=== PATIENT | female | born 1960 | race Caucasian/White ===

== ENCOUNTER → 2021-01-18 15:12 | Outpatient (CLI) | payer OTHER, SELFPAY ==
--- NOTE | 2021-01-18 15:17 | US_ITS ---
STUDY: ULTRASOUND BREAST - RIGHT REASON FOR EXAM: Female, 60 years old. Palpable lump in the right breast. TECHNIQUE: Axial and longitudinal images of the RIGHT breast were performed with a high resolution ultrasound transducer. # OF IMAGES: 13 COMPARISON: None. FINDINGS: RIGHT Breast: There is a 4 mm x 4 mm x 5 mm hypoechoic slightly irregular solid mass at the 10 o''clock position of the breast at 4 cm from the nipple. Biopsy recommended. US/Breast Limited Unilateral IMPRESSION: 4 mm x 4 mm x 5 mm hypoechoic slightly irregular solid mass at the 10 o''clock position of the breast at 4 cm from the nipple. Biopsy recommended. ASSESSMENT CATEGORY: BIRADS Category 4: Suspicious - Biopsy Should Be Considered. A letter regarding these results will be sent to the patient by the facility within 30 days. Electronically Signed: Miles Antoine MD at 9:36 EDT , Service support ,
--- NOTE | 2021-01-21 13:38 | BI_ITS ---
MAMMOGRAPHY - UNILATERAL DIAGNOSTIC: RIGHT BREAST REASON FOR EXAM: Female, 60 years old. Status post ultrasound-guided breast biopsy. PERTINENT HISTORY: Hypoechoic nodule at the 10 o''clock position of the breast or 6 cm from nipple. TECHNIQUE: Mediolateral oblique and craniocaudad views of the right breast were obtained. CAD: Full Field Digital Mammography with Computer Added Detection was performed. COMPARISON: Comparison is made with prior mammogram dated 09/01/2020. FINDINGS: A tissue clip marker is seen in the upper lateral aspect of the right breast. BI/DIAG MAMM W/CAD, UNILAT IMPRESSION: A tissue clip marker is seen in the upper outer aspect of the right breast at the site of the ultrasound-guided biopsy. ASSESSMENT CATEGORY: BIRADS Category 2: Benign. A letter regarding these results will be sent to the patient by the facility within 30 days. Approximately 10% of breast cancers are not detected by mammography. A normal mammogram should not delay biopsy of a clinically suspicious abnormality. Electronically Signed: Miles Antoine MD at 14:14 EDT , Service support ,
== END ==
PROVIDERS: Referring Provider Surgery; Visit Provider Surgery
DX: N63.11 Unspecified lump in the right breast, upper outer quadrant (principal)
CPT/HCPCS: 76642

== ENCOUNTER → 2021-01-21 12:41 | Outpatient (CLI) | payer OTHER, SELFPAY ==
--- NOTE | 2021-01-21 | IMM_PTH ---
PATIENT: SUSHILA FRANCO LOC: [facility] U#:[id number] AGE/SX: 64/F ROOM: RE01/21/[address]: Dr. Nitesh Jules MD : 1960 BED: DIS: SPEC #: [id number] RECD: 01/25/21 12:16 STATUS: MELANY RECasey #: [id number] CORNELIUS: 01/21/21 00:[address]: Nitesh Jules DEPT: IMMUNOHISTOCHEMISTRY RECD BY: Fozia Santizo ENTERED: 01/25/21 12:18 SP TYPE: IMMUNO OTHR DR: No Primary Care Phys Tissues: Right breast, NOS Procedures: CK5-6 (initial) SMA (add) CALPONIN-1 (add) P40 (add) PHYSICIAN & INSTITUTION [place] [id number] SPECIMEN INFORMATION: Tissue Source: Right breast biopsy Clinical Info: Breast lesion Specimen Number: [id number] CPT code: 33463, 78914 x3 METHODOLOGY: Deparaffinized sections of prefer/formalin-fixed tissue or PAP/DQ stained slides are incubated with monoclonal/polyclonal antibodies/oligonucleotide probes. Localization is made via biotin free immunoperoxidase method. Appropriate controls are performed and reacted as expected. Results on target cell population are indicated in the following table: RESULTS: ANTIBODY / CLONE RESULT Actin (1A4) positive CK5-6 (D5 & 1684) positive Calponin-1 (CN650L) positive P40 (BC28) positive These tests were developed and their performance characteristics determined by [facility]. They may not have been cleared or approved by the U.S. Food and Drug Administration. The FDA has determined that such clearance or approval is not necessary. The above immunohistochemical/dualISH markers are ordered and reviewed by the Pathologist. INTERPRETATION: Right breast, biopsy: Consistent with fragments of intraductal papilloma. AM:hyacinth 01/26/2021
--- NOTE | 2021-01-21 | BRBX_PTH ---
PATIENT: SUSHILA FRANCO LOC: [facility] U#:[id number] AGE/SX: 64/F ROOM: RE01/21/[address]: Dr. Nitesh Jules MD : 1960 BED: DIS: SPEC #: [id number] RECD: 01/21/21 14:17 STATUS: MELANY MANPREET #: [id number] CORNELIUS: 01/21/21 00:[address]: Nitesh Jules DEPT: SURGICAL PATHOLOGY RECD BY: Angeline Loaiza ENTERED: 01/24/21 09:02 SP TYPE: BREAST BX OTHR DR: No Primary Care Phys Tissues: Right breast, NOS Procedures: Surgery Specimen Level IV HEADER OPERATION: Right breast biopsy PRE-OP DIAGNOSIS: Right breast lesion TISSUE SUBMITTED: Right breast biopsy ISCHEMIC TIME: 1 minute FIXATION TIME: 77 hours MICROSCOPIC DIAGNOSIS Right breast, core biopsy: Consistent with fragments of intraductal papilloma. See comment. AM:hyacinth 01/26/2021 COMMENT Immunohistochemistry ([id number]) supports the above diagnosis. Case has been reviewed in consultation with Dr. Lyles who concurs with the above diagnosis. IDC:SJ MICROSCOPIC DESCRIPTION Slides are reviewed. GROSS DESCRIPTION Received in fixative is one container labeled with the patient's name and designated right breast. The specimen consists of multiple irregular and elongated fragments of light willis-yellow soft tissue that in aggregate measure 1.5 x 1 x 0.1 cm. The specimen is totally submitted in one cassette. / AM:hyacinth 01/24/21 TC:5 CPT: 44760
--- NOTE | 2021-01-21 12:42 | US_ITS ---
STUDY: ULTRASOUND BREAST - RIGHT REASON FOR EXAM: Female, 60 years old. Right breast biopsy. TECHNIQUE: Axial and longitudinal images of the RIGHT breast were performed with a high resolution ultrasound transducer. # OF IMAGES: 18 COMPARISON: None. FINDINGS: RIGHT Breast: Ultrasound guided breast biopsy was performed by the surgeon of the hypoechoic nodule at the 9 o''clock position of the breast at 5 cm from nipple. US/US Breast Biopsy 1st Lesion IMPRESSION: Ultrasound guided right breast biopsy. ASSESSMENT CATEGORY: BIRADS Category 4: Suspicious - Biopsy Should Be Considered. A letter regarding these results will be sent to the patient by the facility within 30 days. Electronically Signed: Miles Antoine MD at 10:20 EDT , Service support ,
--- NOTE | 2021-01-21 13:36 | PCM.OPRPT ---
Problems Associated Problem List Diagnoses (1) Abnormal ultrasound of breast: Report of Operation Date of Procedure: 01/21/21 Pre-Operative Diagnosis: Irregular density upper outer quadrant right breast 10 o'clock position +5 cm Post-Operative Diagnosis: Irregular density outer mid right breast 9 o'clock position +5 cm Surgery/Procedure Performed:: Ultrasound-guided Monopty needle core biopsy outer mid right breast 9 o'clock position Description of Surgical Findings:: Timeout informed consent was obtained. Patient was taken to the ultrasound suite. She was placed in a modified left lateral decubitus position. Ultrasonography was performed per technology in the upper outer right breast. The preoperative imaging that had been obtained from [facility] could not be confirmed in that location. A more global view was obtained and at the right breast 9 o'clock position +5 cm the density that seem to correlate with preoperative imaging was identified. The breast was prepped with chlorhexidine. Under ultrasound guidance 1% lidocaine was used as a local anesthetic. A small stab incision was created. A 14-gauge Monopty needle was advanced to prefire depth. Pre and post fire films were obtained. 6 cores were obtained. A bowtie clip was left in position. Pressure was held for hemostasis. Steri-Strip Telfa OpSite dressing applied. She tolerated the procedure very well. The specimens were immediately transferred to formalin. Final pathology is pending. Blood loss minimal. Nitesh Jules M.D., F.A.C.S. Surgeon: Nitesh Jules Type of Anesthesia: Local
== END ==
PROVIDERS: Referring Provider Surgery; Visit Provider Surgery
DX: R92.8 Other abnormal and inconclusive findings on diagnostic imaging of breast (principal)
CPT/HCPCS: 19083; 77065; 88305; 88341; 88342

== ENCOUNTER → 2021-01-21 16:23 | Outpatient (CLI) | payer OTHER, SELFPAY | PROVIDERS: Visit Provider Surgery | DX: R69 Illness, unspecified (principal) | CPT/HCPCS: 77065 ==

== ENCOUNTER 2021-04-07 09:50 | Day surgery (SDC) | payer OTHER, SELFPAY ==
[2021-04-07] VITALS (7 sets, daily range): BP systolic 97–116; BP diastolic 64–85; PULSE 58–77; RESP 16–18; TEMP 35.9–36.9; O2SAT 98–100; BMI 23.1
--- NOTE | 2021-04-07 | IMM_PTH ---
PATIENT: SUSHILA FRANCO LOC[place] [facility] [place] U[place][id number] AGE/SX: 60/F ROOM: RE04/07/[address]: Dr. Nitesh Jules MD : 1960 BED: DIS: 04/07/2021 SPEC #: [id number] RECD: 04/12/21 14:48 STATUS: MELANY REQ #: [id number] CORNELIUS: 04/07/21 00:[address]: Nitesh Jules DEPT: IMMUNOHISTOCHEMISTRY RECD BY: Fozia Santizo ENTERED: 04/12/21 14:49 SP TYPE: IMMUNO OTHR DR: No Primary Care Phys Tissues: Right breast, NOS Procedures: SMA (add) Calponin-1(initial) CALPONIN-1 (add) CK5-6 (add) PHYSICIAN & INSTITUTION [place] [id number] SPECIMEN INFORMATION: Tissue Source: Right breast Clinical Info: Right breast mass Specimen Number: [id number] #2, 6 & 10 CPT code: 38618, 91189 x8 METHODOLOGY: Deparaffinized sections of prefer/formalin-fixed tissue or PAP/DQ stained slides are incubated with monoclonal/polyclonal antibodies/oligonucleotide probes. Localization is made via biotin free immunoperoxidase method. Appropriate controls are performed and reacted as expected. Results on target cell population are indicated in the following table: RESULTS: ANTIBODY / CLONE RESULT Block 2 Calponin-1 (WA485P) positive Actin (1A4) positive CK5-6 (D5 & 1684) positive Block 6 Calponin-1 (JA196D) positive Actin (1A4) positive CK5-6 (D5 & 1684) positive Block 10 Calponin-1 (WR218C) positive Actin (1A4) positive CK5-6 (D5 & 1684) positive These tests were developed and their performance characteristics determined by [facility]. They may not have been cleared or approved by the U.S. Food and Drug Administration. The FDA has determined that such clearance or approval is not necessary. The above immunohistochemical/dualISH markers are ordered and reviewed by the Pathologist. INTERPRETATION: Right breast, biopsy: Intraductal papilloma and adenosis. AM:hyacinth 04/13/2021
--- NOTE | 2021-04-07 09:57 | BI_ITS ---
SURGICAL BREAST SPECIMEN RADIOGRAPH CLINICAL: Document presence of tissue clip marker in biopsy specimen. FINDINGS: Specimen shows presence of tissue clip marker. Electronically Signed: Miles Antoine MD at 12:13 EST , Service support , BI/Breast Biopsy Specimen
[2021-04-07] MEDS: Lactated Ringers 1,000 ML 15 ML IV (10:05)
--- NOTE | 2021-04-07 10:24 | HP.PCM_ITS ---
History and Physical Date of Admission: 04/07/21 [facility] [address] [place], [place] [phone] OFFICE VISIT Date of Service: 04/07/21 MR#:[id number] Acct:[id number] Name: SUSHILA FRANCO Rep #:[id number] :1960 Provider:Dr. Nitesh Jules MD Age/Sex: 60/F Location:[facility] Status:Signed Intake Vital Signs 04/07/21 13:49 Height 5 ft 7 in Weight: 148 lb BMI 23.2 BP 99/64 Blood Pressure Location Rt brachial Position Sitting Respiration 18 Intake Visit Reasons: RIGHT BREAST/ BRINGING RESULTS Allergies No Known Allergies Allergy (Unverified 01/18/21 13:46) Medications cholecalciferol (vitamin D3) 125 mcg (5,000 unit) capsule 125 mcg PO DAILY 01/18/21 [History Confirmed 01/18/21] lysine 500 mg tablet 500 mg PO DAILY 01/18/21 [History Confirmed 01/18/21] multivitamin 1 tab PO DAILY 01/18/21 [History Confirmed 01/18/21] PFSH Medical History (Updated 01/18/21 @ 17:[address] Nitesh Jules MD) Breast mass, right PFO (patent foramen ovale) Stroke Surgical History (Updated 01/18/21 @ 13:48 by Lorri Burton) S/P D&C (status post dilation and curettage) Status post right heart catheterization Family History (Updated 01/18/21 @ 13:48 by Lorri Burton) Brother Asthma Social History (Updated 01/18/21 @ 13:48 by Lorri Burton) Smoking Status: Former smoker alcohol intake: never HPI: Patient is a 60 y/o F I am following for an update history and physical. She presents for an elective outpatient excisional breast biopsy. Patient denies recent hospitalizations or illnesses since her last office visit in December. 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 She denies chest pain, shortness of breath. She denies any previous complications with anesthesia or side effects. SUSHILA FRANCO, is a 60 F who presents to the office today for surgical consultation regarding breast disease. 60-year-old female. G4, . Menarche age 13. First child born when she was 30. She did breast-feed. I performed a stereotactic needle core biopsy for her for a vague density in the upper outer quadrant right breast February 27, 2012. Final pathology was benign. She recently at [facility] in [place] had bilateral digital screening mammography September 01, 2020. There was an 8 mm oval mass right breast 11 o'clock position middle depth which had increased in size. There was a biopsy clip within it. On September 06, 2020 she had a right breast ultrasound. This suggested a 7 mm irregular mass in the right breast suspicious of malignancy. An ultrasound-guided biopsy recommended. It was felt that this 7 mm irregular angular mass right breast 10:00 correlated with the mammographic findings of the oval density right breast 11 o'clock position. We do have available to us today the right breast ultrasound imaging. We do not have available to us the mammograms. On my personal review of the ultrasound the irregular lesion actually does not measure 7 mm in size. It actually measures 0.41 x 0.48 x 0.42 cm. It is located at 10 o'clock position +4 cm. G4, . Menarche at age 13. First child born when she was 30. She did breast-feed. She is not on any estrogen replacement. Family history is negative for breast cancer. I have documentation February 27, 2012 because of a density in the upper outer quadrant of the right breast did a stereotactic needle core biopsy of this area. Pathology demonstrated intraductal papilloma. Nonproliferative fibrocystic change with focal microcalcifications. No evidence for malignancy. The operative note was a stereotactic needle core biopsy upper outer quadrant right breast done for vague density. An 8 gauge mammotome needle was utilized. A mini marking clip was left in position at the completion of the procedure. ROS General General: No weight change, appetite, fatigue, colon cancer, breast cancer or weakness HEENT HEENT: No difficulty swallowing, eye injury, eye surgery, swollen glands or hoarseness Endo Endocrine: No thyroid disease, diabetes mellitus, thyroid cancer, Hair loss, heat intolerance or cold intolerance Skin Skin: No rash or changing moles Breast Breast: No left breast lump, right breast lump, nipple discharge, breast pain, abnormal mammogram, abnormal US or breast enlargement Musc Musculoskeletal: No back problems, arthritis, rheumatoid arthritis, gout or joint pain Cardio Cardiovascular: No murmur, pacemaker, heart disease, atrial fibrillation, high blood pressure, heart attack, heart stent, palpitations, shortness of breat with exertion or chest pain Psych Psychiatric: No depression, anxiety or hearing voices Resp Respiratory: No shortness of breath, No sleep apnea, No cough, No COPD, Yes asthma, No emphysema and No wheezing Gastro Gastrointestinal: No abdominal pain, No nausea or vomiting, No diarrhea, No constipation, No blood in stool, No acid reflux, No hemorrhoids, No ulcers, No gallbladder problem and No black,tarry stools Finn Hematologic: No blood thinners, No blood disorders, No bleeding, No anemia and No blood clots Neuro Neurologic: No system reviewed and no additional complaints, except as documented, No as per HPI, No abnormal gait, No abnormal hearing, No abnormal movements, No abnormal speech, No behavioral changes, No burning sensations, No confusion, No convulsions, No disequilibrium, No dizziness, No localized weakness, No frequent falls, No headache(s), No lack of coordination, No loss of vision, No memory loss, Yes numbness, No other visual disturbances, No radicular pain, No restless legs, No sensory deficit, No syncope, Yes tingling, No tremor(s), No weakness and No other Exam: General- alert and oriented x 3 Lungs- CTA Cardiac- RRR GI- abdomen nontender, soft. Positive bowel sounds Extremities- no edema bilaterally Neuro- intact exam. No deficits. Chest: Other: Right breast: No focal mass. Fibrous. No nipple discharge. No axillary or clavicular adenopathy Left breast: No focal mass. No nipple discharge. No axillary or clavicular adenopathy Assessment & Plan Assessment/Plan (1) Breast mass, right: QUALIFIERS: Breast mass location: upper outer quadrant Qualified Code(s): N63.11 - Unspecified lump in the right breast, upper outer quadrant PLAN: Dr. Jules will plan to perform a right stereotactic wire localization excisional breast biopsy. Procedure details risks and benefits have been reviewed. Patient and Dr. Franco have had the opportunity to ask and have questions answered. Patient verbally understands and agrees with the plan. Charges/Coding Visit Charges OBSV E&M: 06621 Initial observation care L1 (update H&P)
--- NOTE | 2021-04-07 10:44 | PCM.OPRPT ---
Problems Associated Problem List Diagnoses (1) Abnormal mammogram of right breast: (2) Intraductal papilloma of right breast: Report of Operation Date of Procedure: 04/07/21 Pre-Operative Diagnosis: Intraductal papilloma outer mid right breast Post-Operative Diagnosis: Same Surgery/Procedure Performed:: Stereotactic wire localization right breast. Wire localized excisional right breast biopsy Description of Surgical Findings:: Timeout and informed consent was obtained. The patient was taken to the stereotactic unit placed prone the table the right breast was placed in a lateral medial view a couple images were obtained in order to identify the location of the marking clips. Stereotactic images were obtained. Digital information was taken on a single target site. 20-gauge Kopan's needle was advanced to depth +15 mm. The breast was prepped with Betadine. 1% lidocaine was used as a local anesthetic. 1 cc was used. The needle was inserted and the wire was displaced. On fast view demonstrated excellent localization. Sterile dressings applied. She was subsequently taken back to the holding area and then transported to the operating room for definitive surgical resection. Timeout informed consent was obtained. The patient was placed on the operating table underwent general anesthesia the right breast was sterilely prepped and draped a some small curvilinear incision was created and sharp and blunt dissection was instituted down to the tip of the wire were circumferential dissection was performed. Hemostasis was obtained throughout with electrocautery. The specimen was sent for specimen mammogram. The wire and marking clips were noted to be intact. I took an additional small amount of deeper tissue just at the exit site of the wire. This represents the deep margin. Specimen mammograms were obtained demonstrating the wire and the marking clip to be in place on the excised specimen. The wound was then approximated deeply with interrupted 3-0 Vicryl and 3 different successive layers. The skin edges were approximated running subicular 4-0 Monocryl. The periincisional area was anesthetized with 50 cc of 1% lidocaine mixed 50-50 with 0.5% Marcaine. Steri-Strips Telfa OpSite and bulky dry dressings were applied. Sponge, instrument, and needle count reported to the surgeon to be correct. Specimen right breast mass with additional deep margin. Drains none. Blood loss minimal. The patient was taken to the recovery area in satisfactory addition without apparent complication Nitesh Jules M.D., F.A.C.S. Surgeon: Nitesh Jules Type of Anesthesia: General and Local Anesthesiologist: Cheyenne Maria
--- NOTE | 2021-04-07 10:47 | EX.PCM.DISCH ---
Discharge Instructions Procedure Breast Surgery Diet Discharge Diet: No restrictions Activity Discharge Activity: May Not Drive (for 2-3 days or while taking narcotic pain meds.) May shower in (days): 1 Lifting Restrictions: 10 pounds for 1 week. Dressing / Incision Call your doctor if your incision/area has: Continuous Slow Oozing and Sudden Increased Bleeding Call your doctor if you observe: Fever of 101 or Higher Suture Line Care: Avoid Pulling/Pushing and Avoid Pinching/Bending Remove Dressing in: 1 day Additional Dressing/Incision Instructions:: You may remove the OpSite/plastic dressing in 3 days. You may then leave the Steri-Strips in place for 1 week. You may shower over the OpSite dressing and then subsequently the Steri-Strips as well. Follow Up Care Test Results: Please contact the office at [phone] to establish a follow-up appointment in 7 to 10 days. Discharge Plan Admission Attending Provider: Nitesh Jules Primary Care Provider: Care Physician,Claudia Primary Discharge Orders/Prescriptions Prescriptions: No Action lysine 500 mg tablet 500 mg PO DAILY RF: 0 cholecalciferol (vitamin D3) 125 mcg (5,000 unit) capsule 125 mcg PO DAILY RF: 0 multivitamin Tablet 1 tab PO DAILY RF: 0 fluticasone propionate 250 mcg/actuation Blister With Device 1 inh INHALATION DAILY RF: 0 Spiriva Respimat 1.25 mcg/actuation Mist 2 puff INHALATION PRN PRN (Reason: SOB) RF: 0
--- NOTE | 2021-04-07 11:00 | BREAST_PTH ---
PATIENT: SUSHILA FRANCO LOC: [facility] [place] U[place][id number] AGE/SX: 60/F ROOM: RE04/07/[address]: Dr. Nitesh Jules MD : 1960 BED: DIS: 04/07/2021 SPEC #: [id number] RECD: 04/07/21 11:44 STATUS: MELANY MANPREET #: [id number] CORNELIUS: 04/07/21 11:[address]: Nitesh Jules DEPT: SURGICAL PATHOLOGY RECD BY: Rony Elizabeth ENTERED: 04/07/21 12:26 SP TYPE: BREAST OTHR DR: No Primary Care Phys Tissues: Right breast, NOS Procedures: Surgery Specimen Level V HEADER OPERATION: Right breast biopsy, NL, ablation of skin tags PRE-OP DIAGNOSIS: Right breast mass TISSUE SUBMITTED: Right breast MICROSCOPIC DIAGNOSIS Right breast, excisional biopsy: Intraductal papilloma with associated microcalcifications. Focal intraductal hyperplasia without atypia. Mild fibrocystic change, focal adenosis and fat necrosis. Changes of previous biopsy. See comment. AM:hyacinth 04/12/2021 COMMENT Immunohistochemistry ([id number]) supports the above diagnosis. Reference is made to the patient's previous breast biopsy ([id number]) in which changes consistent with intraductal papilloma were identified. MICROSCOPIC DESCRIPTION Slides are reviewed. GROSS DESCRIPTION Received in fixative is one container labeled with the patient's name and designated right breast mass. The specimen consists of two irregular fragments of yellow fatty tissue. The smaller fragment measures 2.2 x 2 x 0.4 cm. This fragment is submitted in its entirety in cassette 1. The larger fragment contains wire and sutures and has been oriented measuring 5 x 4.5 x 2.2 cm and weighing 22 gm. The specimen is differentially inked as follows: anterior - yellow, posterior - black, superior - blue, inferior - green, medial - red and lateral - orange. The second fragment is submitted after additional fixation in cassettes 2-10. / AM:hyacinth 04/08/21 TC:5 CPT: 19235
[2021-04-07] MEDS: Bupivacaine Mpf 0.5% 30 ML VIAL (11:58)
[2021-04-07] MEDS: Lidocaine 1% (30 ml sdv) 30 ML Vial (11:58)
== END 2021-04-07 14:43 | disposition home or self-care (01) ==
LOC: SDC 10:00 → AC 10:01
PROVIDERS: Referring Provider Surgery; Visit Provider Surgery
PROC: (CPT 19081; principal; 2021-04-07 10:45)
DX: D24.1 Benign neoplasm of right breast (principal); N60.11 Diffuse cystic mastopathy of right breast; N60.21 Fibroadenosis of right breast; N62 Hypertrophy of breast; J44.9 Chronic obstructive pulmonary disease, unspecified; Q21.1 Atrial septal defect; Z79.899 Other long term (current) drug therapy; Z87.891 Personal history of nicotine dependence
CPT/HCPCS: 00400; 19081; 19281; 76098; 88307; 88341; 88342; J7120; J2405

== ENCOUNTER → 2022-08-30 | Outpatient (CLI) | payer OTHER, SELFPAY ==
[2022-08-30 16:41] LABS: Basophil# 0.05 X10^3/uL; Basophil% 0.8 % (0-1); Eosinophil# 0.45 X10^3/uL; Eosinophils% 7.1 % (0-5); Hematocrit 41.1 % (37-47); Hemoglobin 13.3 g/dL (12.0-15.0); Lymphocyte % 23.6 % (19-41); Mean Corp Hgb Conc 32.4 g/dL (32-36); Mean Corpuscular Hgb 29.5 pg (27.0-32.0); Mean Corpuscular Volume 91.1 fL (81-99); Monocyte# 0.31 X10^3/uL; Monocyte% 4.9 % (0-10); NRBC Flagged by Analyzer 0 % (0-5); Neutrophil # 4.02 X10^3/uL (2.7-7.7); Neutrophil % 63.1 % (47-70); Platelet Count 225 K/mm3 (150-450); RBC Distribution Width CV 12.1 % (11.6-14.6); RBC Distribution Width SD 40.3 fl (35.1-43.9); Red Blood Count 4.51 M/mm3 (4.2-5.4); White Blood Count 6.4 K/mm3 (4.4-11.0)
[2022-08-30 17:13] LABS: ALB/GLOB Ratio 1.3 RATIO (0.9-2.4); AST(SGOT) 22 U/L (15-37); Alanine Aminotransfer ALT/SGPT 28 U/L (13-56); Albumin, Serum 3.7 g/dL (3.2-5.0); Alkaline Phosphatase 65 U/L (45-117); Anion Gap 6 (5-15); BUN 12 mg/dL (7-18); BUN/Creat Ratio 16.4 RATIO (10-20); Calcium,Total 8.6 mg/dL (8.5-10.1); Chloride 108 mmol/L (98-107); Cholesterol 198 mg/dL (200); Creatinine, Serum 0.73 mg/dL (0.55-1.02); EST Glomerular Filtration Rate 86 mL/min (>60); Est Glom Filt Rate - Afr Amer 104 mL/min (>60); Globulin 2.9 g/dL (2.2-4.2); Glucose 88 mg/dL (74-106); High Density Lipoprotein 64 mg/dL; Potassium 3.9 mmol/L (3.5-5.1); Protein, Total 6.6 g/dL (6.4-8.2); Sodium Level 142 mmol/L (136-145); Triglycerides 91 mg/dL; Very Low Density Lipoprotein 18 mg/dL (5-40)
[2022-08-30 18:32] LABS: Vitamin D,25 Hydroxy 38.2 ng/mL
== END | disposition home or self-care (01) ==
PROVIDERS: Visit Provider Internal Medicine
DX: Z00.00 Encounter for general adult medical examination without abnormal findings (principal); Z13.21 Encounter for screening for nutritional disorder
CPT/HCPCS: 36415; 80053; 80061; 82306; 85025